=== PATIENT | male | born 1975 | race Caucasian/White ===

== ENCOUNTER → 2017-03-21 18:18 | Outpatient (CLI) | payer OTHER ==
[~2017-03-21] VITALS: Ht 182.9 cm; Wt 145.1 kg
[~2017-03-21 18:18] MED LIST: AMARYL 2 MG PO; ATORVASTATIN CA10 MG; ATORVASTATIN CA10 MG PO; ENALAPRIL MALEAT5 MG; FORTAMET1000 MG; GLIMEPIRIDE4 MG; GLUMETZA1000 MG; LIPITOR20 MG; METFORMIN PO; VASOTEC5 MG; VASOTEC5 MG PO; [UNRECOGNIZED DRUG - OTHER] PO
== END | disposition home or self-care (01) ==
LOC: PPHC 18:18
DX: E11.9 Type 2 diabetes mellitus without complications (principal); Z76.0 Encounter for issue of repeat prescription